=== PATIENT | female | born 1990 | race Caucasian/White ===

== ENCOUNTER 2016-09-09 11:15 | Emergency (ER) | payer MEDICAID ==
[~2016-09-09] VITALS: Ht 170.2 cm; Wt 98.0 kg
[~2016-09-09 11:15] MED LIST: ALBU18HF INHALATION; CYCL-319 PO; IBUP800T25 PO
[2016-09-09 11:34] VITALS: Ht 170.2 cm; Wt 98.0 kg
--- NOTE | 2016-09-09 13:36 | ERA ---
ER Documentation Chief Complaint Date/Time DATE: 09/09/16 TIME: 13:32 Chief Complaint SOB,HX ASTHMA.18 WEEKS HPI Patient is a 25-year-old female with a chief complaint of abdominal pain. Patient is 18 weeks () is complaining of abdominal pain for the past 2 days more predominant on the right side. Patient also complains of nausea without anorexia. Patient has not taken any medications to relieve the symptoms. Patient denies any fever, diarrhea, constipation, dysuria, hematuria , discharge from the vagina, spotting, previous similar symptoms. ROS All systems reviewed and are negative except as per history of present illness. Medications Home Meds Active Scripts Albuterol Sulfate* (Albuterol Sulfate* Neb) 0.083%-3 Ml Neb, 2.5 MG NEB Q4 Y for SHORTNESS OF BREATH, #30 EA Prov:JENNIFER YUSUF PA-C 09/09/16 Ondansetron (Ondansetron Odt) 4 Mg Tab.rapdis, 4 MG PO Q6H Y for NAUSEA AND/OR VOMITING, #10 TAB Prov:JENNIFER YUSUF PA-C 09/09/16 Cyclobenzaprine Hcl* (Cyclobenzaprine Hcl*) 10 Mg Tablet, 10 MG PO TID, #15 TAB Prov:PUJA RIVERA NP 10/01/15 Ibuprofen* (Motrin*) 800 Mg Tab, 800 MG PO Q8 Y for PAIN AND OR ELEVATED TEMP, # 30 TAB Prov:PUJA RIVERA NP 10/01/15 Albuterol Sulfate* (Ventolin HFA*) 18 Gm Hfa.aer.ad, 2 PUFF INHALATION Q4H, #1 INHALER Prov:PUJA RIVERA NP 10/01/15 Allergies Allergies: Coded Allergies: No Known Allergy (Unverified , 09/30/15) PMhx/Soc Hx Respiratory Disorders: Yes (asthma) Hx Alcohol Use: Yes (occassional) Hx Substance Use: No Hx Tobacco Use: Yes Smoking Status: Never smoker Physical Exam Vitals Physical Exam Const: Well-appearing 25-year-old female who is 18 weeks . Head: Atraumatic Eyes: Normal Conjunctiva ENT: Normal External Ears, Nose and Mouth. Neck: Full range of motion..~ No meningismus. Resp: Clear to auscultation bilaterally Cardio: Regular rate and rhythm, no murmurs Abd: Soft, non tender, non distended. Normal bowel sounds Skin: No petechiae or rashes Back: No midline or flank tenderness Ext: No cyanosis, or edema Neur: Awake and alert Psych: Normal Mood and Affect Results 24 hrs Laboratory Tests Test 09/09/16 13:42 White Blood Count 10.210^3/ul Red Blood Count 3.8510^6/ul Hemoglobin 11.3g/dl Hematocrit 34.5% Mean Corpuscular Volume 89.6fl Mean Corpuscular Hemoglobin 29.4pg Mean Corpuscular Hemoglobin Concent 32.8g/dl Red Cell Distribution Width 13.3% Platelet Count 66992^3/UL Mean Platelet Volume 10.9fl Neutrophils % 61.4% Lymphocytes % 30.6% Monocytes % 5.2% Eosinophils % 1.9% Basophils % 0.6% Nucleated Red Blood Cells % 0.0/100WBC Neutrophils # 6.310^3/ul Lymphocytes # 3.110^3/ul Monocytes # 0.510^3/ul Eosinophils # 0.210^3/ul Basophils # 0.110^3/ul Nucleated Red Blood Cells # 0.010^3/ul Urine Color LT. YELLOW Urine Clarity CLEAR Urine pH 5.5 Urine Specific [place] 1.025 Urine Ketones NEGATIVE Urine Nitrite NEGATIVE Urine Bilirubin NEGATIVE Urine Urobilinogen 0.2 E.U./dL Urine Leukocyte Esterase NEGATIVE Urine Hemoglobin NEGATIVE Urine Glucose NEGATIVE% Urine Total Protein NEGATIVE Sodium Level 136mmol/L Potassium Level 3.6mmol/L Chloride Level 103mmol/L Carbon Dioxide Level 23mmol/L Anion Gap 14 Blood Urea Nitrogen 5mg/dl Creatinine 0.43mg/dl Glucose Level 98mg/dl Calcium Level 8.4mg/dl Total Bilirubin 0.1mg/dl Direct Bilirubin 0.00mg/dl Indirect Bilirubin 0.1mg/dl Aspartate Amino Transf (AST/SGOT) 15IU/L Alanine Aminotransferase (ALT/SGPT) 24IU/L Alkaline Phosphatase 49IU/L Total Protein 6.8g/dl Albumin 3.5g/dl Globulin 3.30g/dl Albumin/Globulin Ratio 1.06 Lipase 21U/L Current Medications Medications (Trade) Dose Ordered Sig/Dave Route PRN Reason Start Time Stop Time Status Last Admin Dose Admin Ondansetron HCl (Zofran Odt) 4 mg ONCE STAT ODT 09/09/16 13:40 09/09/16 13:41 DC 09/09/16 13:43 Procedures/MDM Patient is a 25-year-old female who is 18 weeks . Patient reports abdominal pain but denies bleeding. Worked patient up to ensure viability of the fetus. The labs were unremarkable and the ultrasound results were as follows "Single viable intrauterine gestation of approximately 19 weeks and 2 days based on ultrasound measurements. Ovaries not visualized." Spoke to my attending and he suggested that the patient be discharged with return precautions as well as a follow-up with [facility] in the next 1-3 days. We will go ahead and discharge the patient as the vital signs are stable and they are able to tolerate p.o. with no complaints of nausea or vomiting at this time. Departure Condition: Stable Additional Instructions: Follow up with your PCP within the next 1-3 days for a more thorough evaluation and a possible referral to a specialist. Return the the emergency department immediately if symptoms worsen or change. If you have any questions regarding medications, ask your pharmacist or us before you leave. If any adverse reactions occur while taking your medications, discontinue the treatment and return to the emergency department immediately. Take your medications as directed, and complete the entire course of treatment. JENNIFER YUSUF PA-C Sep 09, 2016 13:36
[2016-09-09] MEDS ORDERED: ONDANSETRON (ODT) 4 MG TAB ODT STA (13:40)
[2016-09-09 13:49] LABS: ADD SCAN DIFF NO
[2016-09-09 13:55] LABS: BASOPHIL # 0.1 10^3/ul (0.0-0.1); BASOPHILS % 0.6 % (0.0-2.0); EOSINOPHILS # 0.2 10^3/ul (0.0-0.5); EOSINOPHILS % 1.9 % (0.0-7.0); HEMATOCRIT 34.5 % (37.0-47.0); HEMOGLOBIN 11.3 g/dl (12.0-16.0); LYMPHOCYTES # 3.1 10^3/ul (0.8-2.9); LYMPHOCYTES % 30.6 % (15.0-51.0); MEAN CORPUSCULAR HEMOGLOBIN 29.4 pg (29.0-33.0); MEAN CORPUSCULAR HGB CONC 32.8 g/dl (32.0-37.0); MEAN CORPUSCULAR VOLUME 89.6 fl (82.0-101.0); MEAN PLATELET VOLUME 10.9 fl (7.4-10.4); MONOCYTE # 0.5 10^3/ul (0.3-0.9); MONOCYTES % 5.2 % (0.0-11.0); NEUTROPHIL # 6.3 10^3/ul (1.6-7.5); NEUTROPHILS % 61.4 % (39.0-77.0); PLATELET COUNT 206 10^3/UL (140-415); RED BLOOD COUNT 3.85 10^6/ul (4.20-5.40); RED CELL DISTRIBUTION WIDTH 13.3 % (11.5-14.5); WHITE BLOOD COUNT 10.2 10^3/ul (4.8-10.8)
[2016-09-09 14:04] LABS: ADD UMIC NO; URINE BILIRUBIN (Dip) NEGATIVE (NEGATIVE); URINE BLOOD (Dip) NEGATIVE (NEGATIVE); URINE COLOR LT. YELLOW (YELLOW); URINE GLUCOSE (Dip) NEGATIVE (NEGATIVE); URINE KETONES (Dip) NEGATIVE (NEGATIVE); URINE LEUKOCYTE ESTERASE (Dip) NEGATIVE (NEGATIVE); URINE NITRITE (Dip) NEGATIVE (NEGATIVE); URINE TOTAL PROTEIN (Dip) NEGATIVE (NEGATIVE); URINE UROBILINOGEN (Dip) 0.2 E.U./dL (0.1-1.0)
[2016-09-09 14:11] LABS: ALBUMIN 3.5 g/dl (3.3-4.9)
[2016-09-09 14:12] LABS: POTASSIUM 3.6 mmol/L (3.5-5.1)
[2016-09-09 14:14] LABS: BILIRUBIN,INDIRECT 0.1 mg/dl (0-1.1); BILIRUBIN,TOTAL 0.1 mg/dl (0.2-1.3); CREATININE 0.43 mg/dl (0.44-1.00); TOTAL PROTEIN 6.8 g/dl (6.1-8.1)
[2016-09-09 14:15] LABS: CALCIUM 8.4 mg/dl (8.4-10.2)
--- NOTE | 2016-09-09 14:20 | RADRPT ---
PROCEDURE: US OB. CLINICAL INDICATION: Size and dates , right-sided abdominal pain TECHNIQUE: Multiple sonographic images of the pelvis and gravid uterus were obtained. The images were reviewed on a PACS workstation. COMPARISON: No prior studies are available for comparison. FINDINGS: There is a single viable intrauterine gestation. Cardiac activity is present with 135 beats per min picayune. There is a vertex presentation. The placenta is anterior. There is no evidence for an abruption or placenta previa. There is a normal amount of amniotic fluid with a MVP= 6.0 cm. Measurements were made in order to determine age. The results are as follows: BPD =4.5 cm HC =16.5 cm AC =13.4 cm FL =3.0 cm Estimated gestational age of approximately 19 weeks and 2 days based on ultrasound measurements. Clinical age: 18 weeks and 4 days. The estimated date of delivery is 02/01/17, based on ultrasound measurements. The EFW = 272 g, 75%, based on LMP age. The ovaries were not visualized. RPTAT: AA IMPRESSION: Single viable intrauterine gestation of approximately 19 weeks and 2 days based on ultrasound measu rements. Ovaries not visualized. .Jalen Son MD, Date Time Electronically viewed and signed by .Jalen Son MD, MD on 09/09/2016 14:19 .S/
[2016-09-09 14:26] LABS: ALBUMIN/GLOBULIN RATIO 1.06
[2016-09-09] MEDS ORDERED: ONDA4TAB14 PO (14:33)
[2016-09-09] MEDS ORDERED: ALBU2.5V3 NEB (15:02)
== END 2016-09-09 15:09 | disposition home or self-care (01) ==
LOC: FTE 11:15
DX: O26.892 Other specified pregnancy related conditions, second trimester (principal); R10.9 Unspecified abdominal pain; O99.512 Diseases of the respiratory system complicating pregnancy, second trimester; J45.909 Unspecified asthma, uncomplicated; R11.0 Nausea; Z3A.19 19 weeks gestation of pregnancy
CPT/HCPCS: 76805; 80053; 81003; 83690; 85025; Z7610; 36415

== ENCOUNTER 2018-04-01 16:11 | Emergency (ER) | END 2018-04-01 17:48 | disposition home or self-care (01) ==

== ENCOUNTER 2018-12-19 17:00 | Emergency (ER) | payer MEDICAID, OTHER ==
[~2018-12-19] VITALS: Ht 165.1 cm; Wt 112.3 kg
[~2018-12-19 17:00] MED LIST changes: +ALBU2.5V3 NEB; +BISM-34 PO; +CIPR-193 PO; +CIPR500T4 PO; -CYCL-319 PO; +CYCL10TA7 PO; +IBUP-1561 PO; -IBUP800T25 PO; +IBUP800T48 PO; +METO10TA92 PO; +ONDA4TAB14 PO
[2018-12-19 17:03] VITALS: BP 133/85; PULSE 100; RESP 18; Ht 165.1 cm; Wt 112.3 kg
--- NOTE | 2018-12-19 17:21 | ERD ---
ER Documentation Chief Complaint Chief Complaint possible mosquito bites to legs , arms , back HPI 28-year-old female presents with complaint of bug bites to her arms legs and back since last night. Patient states that it itches. Denies any pain. Denies any fevers, shortness of breath, chest pain, wheezing, stridor, respiratory distress, abdominal pain, vomiting. ROS All systems reviewed and are negative except as per history of present illness. Medications Home Meds Active Scripts Cephalexin* (Keflex*) 500 Mg Capsule, 500 MG PO QID for 7 Days, CAP Prov:MICK GOLDSMITH 12/19/18 Sulfamethoxazole/Trimethoprim* (Bactrim Ds* Tablet) 1 Each Tablet, 1 TAB PO BID, #14 TAB Prov:MICK GOLDSMITH 12/19/18 Diphenhydramine Hcl* (Benadryl*) 50 Mg Cap, 50 MG PO Q6H PRN for ITCHING/RASH, #30 CAP Prov:MICK GOLDSMITH 12/19/18 Prednisone* (Prednisone*) 20 Mg Tab, 60 MG PO DAILY for 5 Days, TAB Prov:MICK GOLDSMITH 12/19/18 Metoclopramide* (Reglan*) 10 Mg Tablet, 10 MG PO Q6 PRN for NAUSEA AND/OR VOMITING, #10 TAB Prov:GARRET CANCHOLA MD 05/07/18 Ibuprofen* (Motrin*) 400 Mg Tab, 400 MG PO Q8, #15 TAB Prov:GARRET CANCHOLA MD 05/07/18 Ciprofloxacin Hcl* (Ciprofloxacin Hcl*) 250 Mg Tablet, 250 MG PO BID, #14 TAB Prov:GARRET CANCHOLA MD 05/07/18 Bismuth Subsalicylate* (Bismuth Subsalicylate*) 262 Mg/15 Ml Oral.susp, 15 ML PO Q6 PRN for DIARRHEA, #250 ML Prov:MICK FALCON PA-C 04/01/18 Ondansetron (Ondansetron Odt) 4 Mg Tab.rapdis, 4 MG PO Q6H PRN for NAUSEA AND/OR VOMITING, #10 TAB Prov:MICK FALCON PA-C 04/01/18 Ciprofloxacin Hcl* (Ciprofloxacin Hcl*) 500 Mg Tablet, 500 MG PO BID for 3 Days, TAB Prov:MICK FALCON PA-C 04/01/18 Albuterol Sulfate* (Albuterol Sulfate* Neb) 0.083%-3 Ml Neb, 2.5 MG NEB Q4 PRN for SHORTNESS OF BREATH, #30 EA Prov:JENNIFER YUSUF PA-C 09/09/16 Ondansetron (Ondansetron Odt) 4 Mg Tab.rapdis, 4 MG PO Q6H PRN for NAUSEA AND/OR VOMITING, #10 TAB Prov:JENNIFER YUSUF PA-C 09/09/16 Cyclobenzaprine Hcl* (Cyclobenzaprine Hcl*) 10 Mg Tablet, 10 MG PO TID, #15 TAB Prov:PUJA RIVERA. MANAGER TEST 10/01/15 Ibuprofen* (Motrin*) 800 Mg Tab, 800 MG PO Q8 PRN for PAIN AND OR ELEVATED TEMP, #30 TAB Prov:PUJA RIVERA. MANAGER TEST 10/01/15 Albuterol Sulfate* (Ventolin HFA*) 18 Gm Hfa.aer.ad, 2 PUFF INHALATION Q4H, #1 INHALER Prov:PUJA RIVERA. MANAGER TEST 10/01/15 Allergies Allergies: Coded Allergies: No Known Allergy (Unverified , 09/30/15) PMhx/Soc History of Surgery: Yes (CS) Anesthesia Reaction: No Hx Respiratory Disorders: Yes (asthma) Hx Alcohol Use: Yes (occassional) Hx Substance Use: No Hx Tobacco Use: Yes FmHx Family History: No diabetes, No coronary disease, No other Physical Exam Vitals Vital Signs Date Temp Pulse Resp B/P (MAP) Pulse Ox O2 O2 Flow FiO2 Time Delivery Rate 12/19/18 99.1 100 18 133/85 98 17:03 (101) Physical Exam Const: No acute distress Head: Atraumatic Eyes: Normal Conjunctiva ENT: Normal External Ears, Nose and Mouth. Tongue is nonedematous. Tonsils are nonedematous erythematous bilaterally. There is no angioedema. Neck: Full range of motion. No meningismus. Resp: Clear to auscultation bilaterally Cardio: Regular rate and rhythm, no murmurs Abd: Soft, non tender, non distended. Normal bowel sounds Skin: Airway is patent. Plaques noted to the arms legs and back with no lymphatic draining or fluctuance noted. Nontender to palpation. Back: No midline or flank tenderness Ext: No cyanosis, or edema Neur: Awake and alert Psych: Normal Mood and Affect Results 24 hrs Current Medications Medications Dose Sig/Dave Start Time Status Last (Trade) Ordered Route PRN Stop Time Admin Dose Reason Admin Famotidine 40 mg ONCE ONCE 12/19/18 (Pepcid) PO 17:30 12/19/18 17:31 Prednisone 60 mg ONCE ONCE 12/19/18 (Prednisone) PO 17:30 12/19/18 17:31 50 mg ONCE ONCE 12/19/18 Diphenhydrami PO 17:30 ne HCl 12/19/18 17:31 (Benadryl) Procedures/MDM MDM: Patients presentation is consistent with allergic reaction. Patient treated with prednisone, pepcid, and benadryl. Patient discharged with 5 day course of prednisone and benadryl. At no time during the ER course did patient exhibit signs of anaphylaxis, respiratory distress, or angioedema. Patient's vitals were WNL throughout the ER course at time of discharge. In addition, decision was made to cover for possible skin infection with Bactrim and Keflex. At this time, patient is stable for discharge and outpatient management. I have instructed the patient to follow-up with his/her primary care physician in 1-2 days. I have discussed with the patient the possibility of needing to see a specialist for further workup and imaging studies if symptoms persist. I have instructed the patient to promptly return to the ER for any new or worsening symptoms including but not limited to increased pain, fever, nausea, vomiting, weakness or LOC. The patient and/or family expressed understanding of and agreement with this plan. All questions were answered. Home care instructions were provided. DISCLAIMER: Inadvertent spelling and grammatical errors are likely due to EHR/dictation software use and do not reflect on the overall quality of patient care. Also, please note that the electronic time recorded on this note does not necessarily reflect the actual time of the patient encounter. Departure Diagnosis: Primary Impression: Allergic reaction Additional Impression: Bug bites Condition: Stable MICK GOLDSMITH Dec 19, 2018 17:21
[2018-12-19] MEDS ORDERED: BEN50 PO (17:23)
[2018-12-19] MEDS ORDERED: PRED20TA PO (17:23)
[2018-12-19] MEDS ORDERED: CEPH-443 PO (17:25)
[2018-12-19] MEDS ORDERED: SULF1TAB31 PO (17:25)
[2018-12-19] MEDS ORDERED: predniSONE 20 MG TAB PO ONE (17:30)
[2018-12-19] MEDS ORDERED: FAMOTIDINE 20 MG TAB PO ONE (17:30)
[2018-12-19] MEDS ORDERED: DIPHENHYDRAMINE 50 MG CAP PO ONE (17:30)
== END 2018-12-19 17:50 | disposition home or self-care (01) ==
LOC: FTE 17:00
DX: S40.861A Insect bite (nonvenomous) of right upper arm, initial encounter (principal); J45.909 Unspecified asthma, uncomplicated; S40.862A Insect bite (nonvenomous) of left upper arm, initial encounter; S80.861A Insect bite (nonvenomous), right lower leg, initial encounter; S80.862A Insect bite (nonvenomous), left lower leg, initial encounter; W57.XXXA Bitten or stung by nonvenomous insect and other nonvenomous arthropods, initial encounter; Y92.9 Unspecified place or not applicable; Z87.891 Personal history of nicotine dependence
CPT/HCPCS: 81025; J7512; Z7502; Z7610; 99283